=== PATIENT | male | born 1985 | race African-American/Black ===

== ENCOUNTER 2020-11-19 10:53 | Emergency (ER) | payer OTHER ==
[~2020-11-19] VITALS: Ht 167 cm; Wt 77.3 kg
[2020-11-19 11:44] LABS: BASO % 0.9 % (0.0-2.0); EOS # 0.1 (0.0-0.7); EOS % 1.3 % (0-4.0); GRAN % 64.7 % (42.2-75.2); HEMATOCRIT 39.4 % (42.0-52.0); HEMOGLOBIN 13.5 g/dl (13.5-18.0); LYMPH # 1.1 (1.2-3.4); LYMPH % 23.6 % (20.0-51.0); MEAN CELL VOLUME 82 fl (80.0-100.0); MEAN CORPUSCULAR HEMOGLOBIN 28 pg (27.0-31.0); MEAN CORPUSCULAR HGB CONC 34 g/dl (33.0-37.0); MEAN PLATELET VOLUME 11.1 fl (7.4-10.4); MONO # 0.4 (0.1-0.6); MONO % 9.3 % (1.7-9.3); PLATELET COUNT 228 K/mm3 (130-400); RED BLOOD COUNT 4.82 M/mm3 (4.20-5.60)
[2020-11-19 12:00] LABS: ALANINE AMINOTRANSFERASE 23 U/L (4-49); ALBUMIN 4.1 gm/dL (3.5-5.0); ALKALINE PHOSPHATASE 46 U/L (50-136); ANION GAP 5 mmol/L (7-16); AST,SGOT 32 U/L (15-37); BILIRUBIN,TOTAL 0.7 mg/dL (0.0-1.0); BLOOD UREA NITROGEN 17 mg/dL (9-20); C-REACTIVE PROTEIN < 0.5 mg/dL (0.0-0.9); CALCIUM 9.3 mg/dL (8.4-10.2); CARBON DIOXIDE 26 mmol/L (22-30); CHLORIDE 108 mmol/L (98-107); CREATININE, serum 0.87 (0.66-1.25); GLUCOSE 99 mg/dL (74-106); SODIUM 140 mmol/L (137-145); TOTAL PROTEIN 7.5 gm/dL (6.4-8.2)
[2020-11-19 12:54] LABS: MONOSCREEN NEGATIVE
[2020-11-19 14:05] VITALS: BP 143/97; PULSE 54; TEMP 97.6
== END 2020-11-19 14:07 | disposition home or self-care (01) ==
LOC: COL.ER 10:53
PROVIDERS: Emergency Medicine
DX: R53.83 Other fatigue (principal); R53.81 Other malaise